=== PATIENT | male | born 1990 | race African-American/Black ===

== ENCOUNTER 2018-05-01 20:59 | Emergency (ER) | payer MEDICAID ==
[~2018-05-01] VITALS: Ht 193 cm; Wt 87.0 kg
[2018-05-02] MEDS ORDERED: BACITRACIN ZINC OINT UDPKT TOP ONE ×2 (00:30→05:30)
[2018-05-02] MEDS ORDERED: MORPHINE SULFATE 10 MG/ML CPJ IM ONE (00:30)
[2018-05-02] MEDS ORDERED: HYDROCODONE/ACETAMINOPHEN 5/325MG TABLET PO STA (02:42)
[2018-05-02] MEDS ORDERED: LIDOCAINE HCL/PF 1% 10 MG/ML 5ML VIAL IJ NR (04:00)
[2018-05-02 05:45] VITALS: BP 135/78
== END 2018-05-02 05:45 | disposition home or self-care (01) ==
LOC: ER 21:08
DX: L02.31 Cutaneous abscess of buttock (principal); Z91.02 Food additives allergy status; F17.200 Nicotine dependence, unspecified, uncomplicated
CPT/HCPCS: 10060; 96372; 99283; J2270; J3490; Z7610

== ENCOUNTER 2018-05-04 10:46 | Emergency (ER) | payer MEDICAID ==
[~2018-05-04] VITALS: Ht 193 cm; Wt 86.0 kg
[2018-05-04 10:51] VITALS: BP 116/64
== END 2018-05-04 12:11 | disposition home or self-care (01) ==
LOC: ER 10:46
DX: Z48.01 Encounter for change or removal of surgical wound dressing (principal); F12.10 Cannabis abuse, uncomplicated
CPT/HCPCS: 99281

== ENCOUNTER 2018-10-29 05:56 | Emergency (ER) | payer MEDICAID, OTHER ==
[~2018-10-29] VITALS: Ht 193 cm; Wt 99.7 kg
[2018-10-29] MEDS ORDERED: HYDROCODONE/ACETAMINOPHEN 5/325MG TABLET PO ONE (06:45)
[2018-10-29] MEDS ORDERED: LIDOCAINE HCL/PF 1% 10 MG/ML 30ML VIAL INFIL ONE (06:45)
[2018-10-29 09:00] VITALS: BP 137/72
== END 2018-10-29 09:08 | disposition home or self-care (01) ==
LOC: ER 05:56
DX: L02.31 Cutaneous abscess of buttock (principal); R03.0 Elevated blood-pressure reading, without diagnosis of hypertension; F12.90 Cannabis use, unspecified, uncomplicated; F17.210 Nicotine dependence, cigarettes, uncomplicated
CPT/HCPCS: 10060; 99283; J3490